=== PATIENT | female | born 1980 | race African-American/Black ===

== ENCOUNTER 2021-09-02 13:10 | Emergency (ER) | payer MEDICAID ==
[~2021-09-02] VITALS: Ht 160 cm; Wt 132.4 kg
--- NOTE | 2021-09-02 13:15 | NUR ---
Patient ambulatory, alert and oriented x4 with complaints of SOB and cough with greenish phlegm started yesterday. History of asthma, pt stated she runs out of her PRN inhalers. Denies nausea,vomiting,abdominal pain, chest pain. Vitals stable.
--- NOTE | 2021-09-02 13:18 | NUR ---
MD at bedside, medical screening exam in progress.
[2021-09-02] MEDS ORDERED: DEXAMETHASONE 4 MG TABLET ONE (13:56)
[2021-09-02] MEDS ORDERED: ALBUTEROL SULFATE 2.5 MG/3 ML NEBU ONE (13:57)
[2021-09-02] MEDS ORDERED: IPRATROPIUM BROMIDE 0.5 MG/2.5 ML NEBU ONE (13:57)
[2021-09-02] MEDS ORDERED: IPRATROPIUM BROMIDE 0.5 MG/2.5 ML NEBU NEB ONE (14:00)
[2021-09-02] MEDS ORDERED: ALBUTEROL SULFATE 2.5 MG/3 ML NEBU NEB ONE (14:00)
[2021-09-02] MEDS ORDERED: DEXAMETHASONE 4 MG TABLET PO ONE (14:00)
[2021-09-02] MEDS ORDERED: ALBU18HF2 INH (14:21)
[2021-09-02 14:31] VITALS: BP 121/80
--- NOTE | 2021-09-02 14:31 | NUR ---
Patient discharged to home in stable condition. Written and verbal after care instructions given. Patient verbalizes understanding of instructions. Stressed follow up or return to ER for worsening s/s.
== END 2021-09-02 14:32 | disposition home or self-care (01) ==
LOC: ER 13:12
DX: J45.909 Unspecified asthma, uncomplicated (principal); Z91.018 Allergy to other foods
CPT/HCPCS: 71045; 94640; 99283; J8540; A4663; J3590